=== PATIENT | female | born 1930 | race Caucasian/White ===

== ENCOUNTER 2018-10-01 21:17 | Inpatient (IN) | payer MEDICARE, OTHER ==
[2018-10-01 22:18] LABS: ADD MAN DIFF? NO
[2018-10-01 22:20] LABS: BASOPHILS % 0.4 % (0.0-2.0); EOSINOPHILS # 0.1 10^3/ul (0.0-0.5); EOSINOPHILS % 1.7 % (0.0-7.0); HEMATOCRIT 32.5 % (37.0-47.0); HEMOGLOBIN 10.5 g/dl (12.0-16.0); LYMPHOCYTES # 0.8 10^3/ul (0.8-2.9); MEAN CORPUSCULAR HEMOGLOBIN 29.2 pg (29.0-33.0); MEAN CORPUSCULAR HGB CONC 32.3 g/dl (32.0-37.0); MEAN CORPUSCULAR VOLUME 90.3 fl (82.0-101.0); MONOCYTE # 0.6 10^3/ul (0.3-0.9); MONOCYTES % 10.7 % (0.0-11.0); NEUTROPHILS % 72.8 % (39.0-77.0); PLATELET COUNT 143 10^3/UL (140-415); RED CELL DISTRIBUTION WIDTH 16.9 % (11.5-14.5)
[2018-10-01 22:20] LABS: WHITE BLOOD COUNT 5.4 10^3/ul (4.8-10.8)
[2018-10-01] MEDS: SOD CHLORIDE 0.9% 500 ML IV (22:22)
[2018-10-01 22:40] LABS: INR 1.31; PROTIME 16.4 Sec (11.9-14.9); PT RATIO 1.3
[2018-10-01 22:44] LABS: ANION GAP 9 (5-13); BLOOD UREA NITROGEN 66 mg/dl (7-20); CALCIUM 9.3 mg/dl (8.4-10.2); CARBON DIOXIDE 34 mmol/L (21-31); CHLORIDE 94 mmol/L (97-110); CREATININE 2.01 mg/dl (0.44-1.00); GLUCOSE 127 mg/dl (70-220); SODIUM 137 mmol/L (135-144)
[2018-10-01 22:51] LABS: POTASSIUM 2.2 mmol/L (3.5-5.1)
[2018-10-01 22:55] LABS: TROPONIN-I 0.013 ng/ml (0.000-0.120)
[2018-10-01] MEDS: POTASSIUM CHLORIDE 100 ML IVPB (23:37)
[2018-10-02] MEDS ORDERED: LORAZEPAM 2 MG INJ IV (00:30)
[2018-10-02] MEDS ORDERED: NACL 0.9% 3 ML SYG IV (00:30)
[2018-10-02] MEDS ORDERED: HYDROCODONE/APAP (5/325) TAB PO (00:30)
[2018-10-02] MEDS ORDERED: NITROGLYCERIN (SL) 0.4 MG TAB SL (00:30)
[2018-10-02] MEDS ORDERED: morphine 2 MG INJ IV (00:30)
[2018-10-02] MEDS ORDERED: hydrALAzine 20 MG INJ IV (00:30)
[2018-10-02 01:31] LABS: CREATINE KINASE 39 IU/L (23-200)
[2018-10-02 01:45] LABS: CK INDEX 3.2; CK-MB 1.24 ng/ml (0.0-2.4); TROPONIN-I 0.016 ng/ml (0.000-0.120)
[2018-10-02] MEDS: POTASSIUM CHLORIDE 100 ML IVPB ×5 (01:53→18:42)
[2018-10-02 02:28] LABS: FREE T4 (FREE THYROXINE) 2.09 ng/dl (0.85-1.93)
[2018-10-02] MEDS: ALBUTEROL/IPRATROPIUM (NEB) 3 ML AMP HHN ×5 (04:27→20:59)
[2018-10-02] MEDS: FUROSEMIDE 20 MG INJ IV ×2 (06:00→18:43)
[2018-10-02] MEDS ORDERED: POTASSIUM CHLORIDE (SR) 20 MEQ TAB PO (06:00)
[2018-10-02 06:26] LABS: CREATINE KINASE 36 IU/L (23-200)
[2018-10-02 06:38] LABS: CK INDEX 2.9; CK-MB 1.04 ng/ml (0.0-2.4); TROPONIN-I 0.016 ng/ml (0.000-0.120)
[2018-10-02 06:47] LABS: ADD MAN DIFF? NO
[2018-10-02 06:49] LABS: BASOPHILS % 0.2 % (0.0-2.0); EOSINOPHILS # 0.1 10^3/ul (0.0-0.5); EOSINOPHILS % 1.2 % (0.0-7.0); HEMATOCRIT 31.8 % (37.0-47.0); HEMOGLOBIN 10.1 g/dl (12.0-16.0); LYMPHOCYTES # 0.7 10^3/ul (0.8-2.9); LYMPHOCYTES % 14.8 % (15.0-51.0); MEAN CORPUSCULAR HEMOGLOBIN 28.9 pg (29.0-33.0); MEAN CORPUSCULAR HGB CONC 31.8 g/dl (32.0-37.0); MEAN CORPUSCULAR VOLUME 90.9 fl (82.0-101.0); MEAN PLATELET VOLUME 9.5 fl (7.4-10.4); MONOCYTE # 0.5 10^3/ul (0.3-0.9); MONOCYTES % 10.5 % (0.0-11.0); NEUTROPHIL # 3.6 10^3/ul (1.6-7.5); NEUTROPHILS % 72.7 % (39.0-77.0); PLATELET COUNT 131 10^3/UL (140-415); RED CELL DISTRIBUTION WIDTH 17.2 % (11.5-14.5)
[2018-10-02 06:49] LABS: WHITE BLOOD COUNT 4.9 10^3/ul (4.8-10.8)
[2018-10-02 07:09] LABS: ANION GAP 4 (5-13); BLOOD UREA NITROGEN 60 mg/dl (7-20); CALCIUM 8.7 mg/dl (8.4-10.2); CARBON DIOXIDE 35 mmol/L (21-31); CHLORIDE 101 mmol/L (97-110); CREATININE 1.85 mg/dl (0.44-1.00); GLUCOSE 103 mg/dl (70-220); SODIUM 140 mmol/L (135-144)
[2018-10-02 07:13] LABS: POTASSIUM 2.3 mmol/L (3.5-5.1)
[2018-10-02] MEDS: INSULIN ASPART [NOVOLOG] 3 ML PEN SC ×5 (08:10→20:43)
[2018-10-02] MEDS: POTASSIUM CHLORIDE (SR) 20 MEQ TAB PO ×2 (09:25→16:27)
[2018-10-02] MEDS: HEPARIN 5,000 UNIT/1 ML VIAL SC ×2 (09:56→20:52)
[2018-10-02] MEDS: IOHEXOL 14.3 MG(I)/ML (ADULT) BTL PO (11:00)
[2018-10-02] MEDS: SPIRONOLACTONE 50 MG TAB PO (14:17)
[2018-10-02 14:48] LABS: ANION GAP 11 (5-13); BLOOD UREA NITROGEN 58 mg/dl (7-20); CARBON DIOXIDE 34 mmol/L (21-31); CHLORIDE 96 mmol/L (97-110); CREATININE 1.94 mg/dl (0.44-1.00); GLUCOSE 170 mg/dl (70-220); SODIUM 141 mmol/L (135-144)
[2018-10-02 14:50] LABS: POTASSIUM 2.4 mmol/L (3.5-5.1)
[2018-10-02] MEDS: MAGNESIUM HYDROXIDE 30ML CUP PO (15:23)
[2018-10-02 16:35] LABS: ADD UMIC YES; UR ASCORBIC ACID 20 mg/dL (NEGATIVE); UR BACTERIA FEW /HPF (NONE SEEN); UR BILIRUBIN (Dip) NEGATIVE (NEGATIVE); UR BLOOD (Dip) 3+ mg/dL (NEGATIVE); UR CLARITY SLIGHTLY CLOUDY (CLEAR); UR COLOR YELLOW (YELLOW); UR GLUCOSE (Dip) NEGATIVE (NEGATIVE); UR HYALINE CAST FEW /HPF (NONE SEEN); UR KETONES (Dip) NEGATIVE (NEGATIVE); UR LEUKOCYTE ESTERASE (Dip) 1+ Leu/ul (NEGATIVE); UR NITRITE (Dip) NEGATIVE (NEGATIVE); UR RBC 180 /HPF (0-5); UR SPECIFIC GRAVITY (Dip) 1.011 (1.003-1.030); UR SQUAMOUS EPITHELIAL CELL FEW /HPF (FEW); UR TOTAL PROTEIN (Dip) 1+ mg/dl (NEGATIVE); UR UROBILINOGEN (Dip) NEGATIVE (NEGATIVE); UR WBC 17 /HPF (0-5)
[2018-10-02 16:52] LABS: SODIUM,URINE RANDOM 17 mmol/L (30-90)
[2018-10-02 16:52] LABS: CREATININE,URINE RANDOM 80.01 mg/dl (20-320)
[2018-10-02] MEDS: NA PHOSPHATE/BIPHOS 133 ML ENEMA PR (20:52)
[2018-10-03] MEDS: ACCU-CHEK XX (01:27)
[2018-10-03] MEDS: ALBUTEROL/IPRATROPIUM (NEB) 3 ML AMP HHN ×6 (01:52→21:00)
[2018-10-03 06:14] LABS: ADD MAN DIFF? NO
[2018-10-03 06:15] LABS: WHITE BLOOD COUNT 5.8 10^3/ul (4.8-10.8)
[2018-10-03 06:15] LABS: BASOPHILS % 0.3 % (0.0-2.0); EOSINOPHILS # 0.1 10^3/ul (0.0-0.5); EOSINOPHILS % 0.9 % (0.0-7.0); HEMATOCRIT 29.2 % (37.0-47.0); HEMOGLOBIN 9.4 g/dl (12.0-16.0); LYMPHOCYTES # 0.9 10^3/ul (0.8-2.9); LYMPHOCYTES % 15.8 % (15.0-51.0); MEAN CORPUSCULAR HEMOGLOBIN 29.8 pg (29.0-33.0); MEAN CORPUSCULAR HGB CONC 32.2 g/dl (32.0-37.0); MEAN CORPUSCULAR VOLUME 92.7 fl (82.0-101.0); MONOCYTE # 0.7 10^3/ul (0.3-0.9); MONOCYTES % 12.2 % (0.0-11.0); NEUTROPHILS % 70.1 % (39.0-77.0); PLATELET COUNT 127 10^3/UL (140-415); RED BLOOD COUNT 3.15 10^6/ul (4.20-5.40); RED CELL DISTRIBUTION WIDTH 17.5 % (11.5-14.5)
[2018-10-03 06:46] LABS: CHOLESTEROL 82 mg/dl (100-200)
[2018-10-03 06:46] LABS: CHOL/HDL RATIO 3.5 RATIO; HDL CHOLESTEROL 23 mg/dl (33-92); LDL CHOLESTEROL,CALCULATED 44 mg/dl; TRIGLYCERIDES 75 mg/dl (0-149)
[2018-10-03 06:50] LABS: ANION GAP 2 (5-13); BLOOD UREA NITROGEN 56 mg/dl (7-20); CALCIUM 8.7 mg/dl (8.4-10.2); CARBON DIOXIDE 36 mmol/L (21-31); CHLORIDE 102 mmol/L (97-110); CREATININE 1.76 mg/dl (0.44-1.00); GLUCOSE 105 mg/dl (70-220); MAGNESIUM 2.3 mg/dl (1.7-2.5); PHOSPHORUS 4.3 mg/dl (2.5-4.9); SODIUM 140 mmol/L (135-144)
[2018-10-03 07:07] LABS: HEMOGLOBIN A1C 4.7 % (0-5.9)
[2018-10-03 07:11] LABS: POTASSIUM 2.9 mmol/L (3.5-5.1)
[2018-10-03] MEDS: INSULIN ASPART [NOVOLOG] 3 ML PEN SC ×4 (08:00→21:00)
[2018-10-03] MEDS: POTASSIUM CHLORIDE (SR) 20 MEQ TAB PO (09:05)
[2018-10-03] MEDS: HEPARIN 5,000 UNIT/1 ML VIAL SC ×2 (09:12→21:13)
[2018-10-03] MEDS: POTASSIUM CHLORIDE 100 ML IVPB ×2 (11:03→13:08)
[2018-10-03 14:35] LABS: ANION GAP 1 (5-13); BLOOD UREA NITROGEN 52 mg/dl (7-20); CALCIUM 8.8 mg/dl (8.4-10.2); CARBON DIOXIDE 35 mmol/L (21-31); CHLORIDE 104 mmol/L (97-110); CREATININE 1.81 mg/dl (0.44-1.00); GLUCOSE 141 mg/dl (70-220); POTASSIUM 5.3 mmol/L (3.5-5.1); SODIUM 140 mmol/L (135-144)
[2018-10-03] MEDS: LIDOCAINE 1% (MPF) 5 ML VIAL (16:46)
[2018-10-03 17:00] LABS: FLD MN% 92.3 %; FLD PMN% 7.7 %; FLD RBC 22000 /uL; FLD WBC 326 /cmm
[2018-10-03 17:04] LABS: FLUID TOTAL PROTEIN 2.7 g/dl
[2018-10-03 19:29] LABS: FLD TYPE ASCITES
[2018-10-03 19:29] LABS: FLD CLARITY CLOUDY; FLD COLOR AMBER
[2018-10-03] MEDS: ONDANSETRON 4 MG INJ IV (20:59)
[2018-10-03] MEDS: CEPASTAT LOZENGE MT (22:17)
[2018-10-03] MEDS ORDERED: morphine SULFATE/PF (2 MG/2 ML) SYG IV (22:22)
[2018-10-03] MEDS: METOCLOPRAMIDE 10 MG INJ IV (22:38)
[2018-10-04] MEDS ORDERED: METOCLOPRAMIDE 10 MG INJ IV
[2018-10-04] MEDS: ALBUTEROL/IPRATROPIUM (NEB) 3 ML AMP HHN ×6 (01:00→20:32)
[2018-10-04] MEDS: ACCU-CHEK XX (02:00)
[2018-10-04 05:56] LABS: ADD MAN DIFF? NO; HAAIG REFLEX REFLEX FILED
[2018-10-04 06:07] LABS: WHITE BLOOD COUNT 6.7 10^3/ul (4.8-10.8)
[2018-10-04 06:07] LABS: BASOPHILS % 0.3 % (0.0-2.0); EOSINOPHILS # 0.1 10^3/ul (0.0-0.5); EOSINOPHILS % 0.9 % (0.0-7.0); HEMATOCRIT 30.7 % (37.0-47.0); HEMOGLOBIN 9.5 g/dl (12.0-16.0); LYMPHOCYTES % 14.5 % (15.0-51.0); MEAN CORPUSCULAR HEMOGLOBIN 29.5 pg (29.0-33.0); MEAN CORPUSCULAR HGB CONC 30.9 g/dl (32.0-37.0); MEAN CORPUSCULAR VOLUME 95.3 fl (82.0-101.0); MONOCYTE # 0.7 10^3/ul (0.3-0.9); MONOCYTES % 10.9 % (0.0-11.0); NEUTROPHIL # 4.9 10^3/ul (1.6-7.5); NEUTROPHILS % 72.7 % (39.0-77.0); PLATELET COUNT 149 10^3/UL (140-415); RED BLOOD COUNT 3.22 10^6/ul (4.20-5.40); RED CELL DISTRIBUTION WIDTH 17.5 % (11.5-14.5)
[2018-10-04 06:33] LABS: ANION GAP 1 (5-13); BLOOD UREA NITROGEN 50 mg/dl (7-20); CALCIUM 8.5 mg/dl (8.4-10.2); CARBON DIOXIDE 38 mmol/L (21-31); CHLORIDE 104 mmol/L (97-110); CREATININE 1.82 mg/dl (0.44-1.00); GLUCOSE 125 mg/dl (70-220); POTASSIUM 3.8 mmol/L (3.5-5.1); SODIUM 143 mmol/L (135-144)
[2018-10-04 06:59] LABS: HEPATITIS B SURFACE ANTIGEN NEGATIVE (NEGATIVE)
[2018-10-04 07:17] LABS: HEPATITIS B CORE ANTIBODY NEGATIVE (NEGATIVE); HEPATITIS C VIRAL ANTIBODY NEGATIVE (NEGATIVE)
[2018-10-04] MEDS: INSULIN ASPART [NOVOLOG] 3 ML PEN SC ×4 (07:30→20:13)
[2018-10-04 09:10] LABS: AADO2 Arterial 28.7 mmHg (7.0-24.0); Arterial Base Excess 9.9 mmol/L (-3.0-3); Arterial Blood Gas Oxygen Sat 98.5 mmHG (95.0-100.0); Arterial COHb 0.6 % (0.0-3.0); Arterial Fraction of Oxyhgb 97.6 % (93.0-99.0); Arterial MetHb 0.3 % (0.0-1.5); Arterial pCO2 38.7 mmhg (35-45); MODE NASAL CANNULA; Site Right Brachial
[2018-10-04] MEDS: FUROSEMIDE 20 MG INJ IV (09:12)
[2018-10-04] MEDS: POTASSIUM CHLORIDE (SR) 20 MEQ TAB PO (09:13)
[2018-10-04] MEDS: HEPARIN 5,000 UNIT/1 ML VIAL SC ×2 (09:21→21:08)
[2018-10-04 10:18] LABS: ALANINE AMINOTRANSFERASE 30 IU/L (13-69); ALBUMIN 2.2 g/dl (3.3-4.9); ALKALINE PHOSPHATASE 72 IU/L (42-121); ASPARTATE AMINO TRANSFERASE 45 IU/L (15-46); BILIRUBIN,INDIRECT 1.2 mg/dl (0-1.1); BILIRUBIN,TOTAL 1.2 mg/dl (0.2-1.3); TOTAL PROTEIN 6.2 g/dl (6.1-8.1)
[2018-10-04 15:32] LABS: CREATININE, RANDOM URINE 75 mg/dL (20-275); MICROALBUMIN 19.6 mg/dL; MICROALBUMIN/CREATININE RATIO 261 (<30)
[2018-10-05] MEDS: ACCU-CHEK XX (01:26)
[2018-10-05] MEDS: ALBUTEROL/IPRATROPIUM (NEB) 3 ML AMP HHN ×6 (01:38→21:08)
[2018-10-05 05:46] LABS: ADD MAN DIFF? NO
[2018-10-05 06:03] LABS: WHITE BLOOD COUNT 8.4 10^3/ul (4.8-10.8)
[2018-10-05 06:03] LABS: BASOPHILS % 0.5 % (0.0-2.0); EOSINOPHILS # 0.2 10^3/ul (0.0-0.5); EOSINOPHILS % 2.2 % (0.0-7.0); LYMPHOCYTES # 1.3 10^3/ul (0.8-2.9); LYMPHOCYTES % 15.5 % (15.0-51.0); MEAN CORPUSCULAR HGB CONC 31.3 g/dl (32.0-37.0); MEAN CORPUSCULAR VOLUME 96.1 fl (82.0-101.0); MONOCYTE # 0.9 10^3/ul (0.3-0.9); MONOCYTES % 10.6 % (0.0-11.0); NEUTROPHIL # 5.9 10^3/ul (1.6-7.5); NEUTROPHILS % 70.1 % (39.0-77.0); NUCLEATED RED BLOOD CELLS% 0.2 /100WBC (0.0-0.0); PLATELET COUNT 142 10^3/UL (140-415); RED BLOOD COUNT 3.33 10^6/ul (4.20-5.40); RED CELL DISTRIBUTION WIDTH 17.7 % (11.5-14.5)
[2018-10-05 06:27] LABS: ALANINE AMINOTRANSFERASE 24 IU/L (13-69); ALBUMIN 2.2 g/dl (3.3-4.9); ALBUMIN/GLOBULIN RATIO 0.57; ALKALINE PHOSPHATASE 82 IU/L (42-121); ANION GAP 2 (5-13); ASPARTATE AMINO TRANSFERASE 41 IU/L (15-46); BILIRUBIN,INDIRECT 1.4 mg/dl (0-1.1); BILIRUBIN,TOTAL 1.4 mg/dl (0.2-1.3); BLOOD UREA NITROGEN 52 mg/dl (7-20); CALCIUM 8.4 mg/dl (8.4-10.2); CARBON DIOXIDE 38 mmol/L (21-31); CHLORIDE 102 mmol/L (97-110); CREATININE 1.92 mg/dl (0.44-1.00); GLUCOSE 108 mg/dl (70-220); POTASSIUM 4.3 mmol/L (3.5-5.1); SODIUM 142 mmol/L (135-144)
[2018-10-05] MEDS: INSULIN ASPART [NOVOLOG] 3 ML PEN SC ×4 (08:00→20:54)
[2018-10-05] MEDS: HEPARIN 5,000 UNIT/1 ML VIAL SC ×2 (08:55→20:59)
[2018-10-05] MEDS ORDERED: ACETAZOLAMIDE 500 MG INJ IV (09:30)
[2018-10-05] MEDS: FUROSEMIDE 40 MG INJ IV (12:01)
[2018-10-06] MEDS: ACCU-CHEK XX (02:00)
[2018-10-06] MEDS: ALBUTEROL/IPRATROPIUM (NEB) 3 ML AMP HHN ×6 (02:34→20:02)
[2018-10-06 05:52] LABS: ADD MAN DIFF? NO
[2018-10-06 06:00] LABS: BASOPHILS % 0.4 % (0.0-2.0); EOSINOPHILS # 0.2 10^3/ul (0.0-0.5); EOSINOPHILS % 2.3 % (0.0-7.0); HEMATOCRIT 33.3 % (37.0-47.0); HEMOGLOBIN 10.2 g/dl (12.0-16.0); LYMPHOCYTES # 1.3 10^3/ul (0.8-2.9); LYMPHOCYTES % 12.1 % (15.0-51.0); MEAN CORPUSCULAR HEMOGLOBIN 29.5 pg (29.0-33.0); MEAN CORPUSCULAR HGB CONC 30.6 g/dl (32.0-37.0); MEAN CORPUSCULAR VOLUME 96.2 fl (82.0-101.0); MONOCYTE # 1.1 10^3/ul (0.3-0.9); MONOCYTES % 10.5 % (0.0-11.0); NEUTROPHIL # 7.8 10^3/ul (1.6-7.5); NUCLEATED RED BLOOD CELLS% 0.3 /100WBC (0.0-0.0); PLATELET COUNT 167 10^3/UL (140-415); RED BLOOD COUNT 3.46 10^6/ul (4.20-5.40); RED CELL DISTRIBUTION WIDTH 17.4 % (11.5-14.5)
[2018-10-06 06:00] LABS: WHITE BLOOD COUNT 10.6 10^3/ul (4.8-10.8)
[2018-10-06 06:24] LABS: ANION GAP 4 (5-13); BLOOD UREA NITROGEN 52 mg/dl (7-20); CALCIUM 8.2 mg/dl (8.4-10.2); CARBON DIOXIDE 36 mmol/L (21-31); CHLORIDE 98 mmol/L (97-110); CREATININE 1.77 mg/dl (0.44-1.00); GLUCOSE 107 mg/dl (70-220); POTASSIUM 3.9 mmol/L (3.5-5.1); SODIUM 138 mmol/L (135-144)
[2018-10-06] MEDS: MAGNESIUM HYDROXIDE 30ML CUP PO (07:16)
[2018-10-06] MEDS: INSULIN ASPART [NOVOLOG] 3 ML PEN SC ×4 (07:53→21:00)
[2018-10-06] MEDS: HEPARIN 5,000 UNIT/1 ML VIAL SC ×2 (08:04→20:27)
[2018-10-06] MEDS: FUROSEMIDE 40 MG INJ IV ×2 (08:11→18:11)
[2018-10-06 11:36] LABS: MITOCHONDRIAL TB NEGATIVE (NEGATIVE); SMOOTH MUSCLE AB SCREEN NEGATIVE (NEGATIVE)
[2018-10-06 13:11] LABS: ANA SCREEN NEGATIVE (NEGATIVE)
[2018-10-06] MEDS: DOCUSATE SODIUM 100 MG CAP PO (20:09)
[2018-10-07] MEDS: ALBUTEROL/IPRATROPIUM (NEB) 3 ML AMP HHN ×6 (01:16→21:00)
[2018-10-07] MEDS: ACCU-CHEK XX (02:00)
[2018-10-07] MEDS: FUROSEMIDE 40 MG INJ IV ×2 (05:56→17:15)
[2018-10-07 06:08] LABS: ADD MAN DIFF? NO
[2018-10-07 06:12] LABS: BASOPHIL # 0.1 10^3/ul (0.0-0.1); BASOPHILS % 0.6 % (0.0-2.0); EOSINOPHILS # 0.1 10^3/ul (0.0-0.5); EOSINOPHILS % 1.3 % (0.0-7.0); HEMATOCRIT 31.5 % (37.0-47.0); HEMOGLOBIN 9.7 g/dl (12.0-16.0); LYMPHOCYTES # 1.3 10^3/ul (0.8-2.9); LYMPHOCYTES % 14.2 % (15.0-51.0); MEAN CORPUSCULAR HEMOGLOBIN 29.4 pg (29.0-33.0); MEAN CORPUSCULAR HGB CONC 30.8 g/dl (32.0-37.0); MEAN CORPUSCULAR VOLUME 95.5 fl (82.0-101.0); MONOCYTE # 0.9 10^3/ul (0.3-0.9); MONOCYTES % 9.7 % (0.0-11.0); NEUTROPHIL # 6.5 10^3/ul (1.6-7.5); NEUTROPHILS % 72.3 % (39.0-77.0); NUCLEATED RED BLOOD CELLS% 0.3 /100WBC (0.0-0.0); PLATELET COUNT 146 10^3/UL (140-415); RED CELL DISTRIBUTION WIDTH 17.8 % (11.5-14.5)
[2018-10-07 06:27] LABS: ANION GAP 1 (5-13); BLOOD UREA NITROGEN 57 mg/dl (7-20); CALCIUM 7.8 mg/dl (8.4-10.2); CARBON DIOXIDE 37 mmol/L (21-31); CHLORIDE 99 mmol/L (97-110); CREATININE 1.78 mg/dl (0.44-1.00); GLUCOSE 103 mg/dl (70-220); SODIUM 137 mmol/L (135-144)
[2018-10-07 06:32] LABS: MAGNESIUM 2.3 mg/dl (1.7-2.5)
[2018-10-07 06:32] LABS: PHOSPHORUS 4.1 mg/dl (2.5-4.9)
[2018-10-07] MEDS: INSULIN ASPART [NOVOLOG] 3 ML PEN SC ×4 (08:00→21:00)
[2018-10-07] MEDS: DOCUSATE SODIUM 100 MG CAP PO (08:53)
[2018-10-07] MEDS: HEPARIN 5,000 UNIT/1 ML VIAL SC ×2 (09:04→21:32)
[2018-10-07] MEDS: METOLAZONE 5 MG TAB PO (16:01)
[2018-10-07] MEDS: ACETAMINOPHEN 325 MG TAB PO (16:02)
[2018-10-08] MEDS: ALBUTEROL/IPRATROPIUM (NEB) 3 ML AMP HHN ×4 (00:58→12:31)
[2018-10-08] MEDS: ACCU-CHEK XX (02:41)
[2018-10-08 05:21] LABS: ADD MAN DIFF? NO
[2018-10-08 05:26] LABS: WHITE BLOOD COUNT 10.1 10^3/ul (4.8-10.8)
[2018-10-08 05:26] LABS: BASOPHILS % 0.4 % (0.0-2.0); EOSINOPHILS # 0.2 10^3/ul (0.0-0.5); HEMATOCRIT 32.7 % (37.0-47.0); HEMOGLOBIN 10.5 g/dl (12.0-16.0); LYMPHOCYTES # 1.5 10^3/ul (0.8-2.9); LYMPHOCYTES % 14.6 % (15.0-51.0); MEAN CORPUSCULAR HEMOGLOBIN 30.1 pg (29.0-33.0); MEAN CORPUSCULAR HGB CONC 32.1 g/dl (32.0-37.0); MEAN CORPUSCULAR VOLUME 93.7 fl (82.0-101.0); MEAN PLATELET VOLUME 9.1 fl (7.4-10.4); MONOCYTE # 1.3 10^3/ul (0.3-0.9); MONOCYTES % 12.5 % (0.0-11.0); NEUTROPHIL # 6.8 10^3/ul (1.6-7.5); NEUTROPHILS % 67.9 % (39.0-77.0); NUCLEATED RED BLOOD CELLS% 0.4 /100WBC (0.0-0.0); PLATELET COUNT 169 10^3/UL (140-415); RED BLOOD COUNT 3.49 10^6/ul (4.20-5.40); RED CELL DISTRIBUTION WIDTH 18.4 % (11.5-14.5)
[2018-10-08 05:58] LABS: ANION GAP 6 (5-13); BLOOD UREA NITROGEN 63 mg/dl (7-20); CALCIUM 7.9 mg/dl (8.4-10.2); CARBON DIOXIDE 34 mmol/L (21-31); CHLORIDE 93 mmol/L (97-110); GLUCOSE 100 mg/dl (70-220); POTASSIUM 3.6 mmol/L (3.5-5.1); SODIUM 133 mmol/L (135-144)
[2018-10-08] MEDS: FUROSEMIDE 40 MG INJ IV (06:03)
[2018-10-08] MEDS: INSULIN ASPART [NOVOLOG] 3 ML PEN SC ×2 (08:00→12:00)
[2018-10-08] MEDS: METOLAZONE 5 MG TAB PO (08:54)
[2018-10-08] MEDS: HEPARIN 5,000 UNIT/1 ML VIAL SC (09:06)
[2018-10-08] MEDS: DOCUSATE SODIUM 100 MG CAP PO (10:29)
== END 2018-10-08 15:12 | disposition home health service (06) | DRG 432 ==
LOC: 6WM 23:14 → E/R 21:17 → 6WM 10-02 00:19
PROC: 0W9G3ZZ Drainage of Peritoneal Cavity, Percutaneous Approach (ICD-10-PCS; 2018-10-03)
PROC: 4A033R1 Measurement of Arterial Saturation, Peripheral, Percutaneous Approach (ICD-10-PCS; 2018-10-04)
PROC: 0W9G3ZZ Drainage of Peritoneal Cavity, Percutaneous Approach (ICD-10-PCS; principal; 2018-10-06)
DX: K74.60 Unspecified cirrhosis of liver (principal); I50.31 Acute diastolic (congestive) heart failure; N17.9 Acute kidney failure, unspecified; I13.0 Hypertensive heart and chronic kidney disease with heart failure and stage 1 through stage 4 chronic kidney disease, or unspecified chronic kidney disease; R18.8 Other ascites; D68.9 Coagulation defect, unspecified; E87.3 Alkalosis; E87.6 Hypokalemia; E11.22 Type 2 diabetes mellitus with diabetic chronic kidney disease; N18.3 Chronic kidney disease, stage 3 (moderate); D64.9 Anemia, unspecified; K76.0 Fatty (change of) liver, not elsewhere classified; R55 Syncope and collapse
CPT/HCPCS: 36600; 70450; 70551; 71045; 74176; 76775; 80048; 80053; 80061; 80076; 81001; 81003; 82042; 82043; 82550; 82553; 82787; 82803; 82962; 83036; 83735; 84100; 84155; 84157; 84300; 84439; 84443; 84484; 85025; 85610; 85730; 86038; 86255; 86376; 86704; 86709; 86803; 87070; 87086; 87102; 87116; 87340; 89051; 92610; 93005; 93306; 93880; 94640; 94664; 97110; 97116; 97161; 97167; 97530; 97535; 99285-25; G0378